=== PATIENT | female | born 1985 | race African-American/Black ===

== ENCOUNTER 2017-03-30 18:33 | Emergency (ER) | payer MEDICAID, OTHER ==
[~2017-03-30] VITALS: Ht 157.5 cm; Wt 70.0 kg
[2017-03-30] MEDS ORDERED: KETOROLAC 60MG/2ML VIAL IM STA (22:43)
[2017-03-30 22:44] LABS: CLARITY URINE CLEAR (CLEAR); COLOR URINE YELLOW (YELLOW); KETONES URINE NEGATIVE (NEGATIVE); LEUKOCYTE ESTERASE URINE NEGATIVE (NEGATIVE); NITRITE URINE NEGATIVE (NEGATIVE); OCCULT BLOOD URINE NEGATIVE (NEGATIVE); PROTEIN URINE NEGATIVE (NEGATIVE); SPECIFIC GRAVITY URINE 1.023 (1.005-1.030); UROBILINOGEN URINE 0.2 E.U./dL (0.2-1.0)
[2017-03-30] MEDS ORDERED: CYCLOBENZAPRINE 10MG TABLET PO ONE (22:45)
[2017-03-30 22:59] VITALS: BP 125/98
[2017-03-31 00:35] LABS: BASOPHILS % 0.9 % (0.0-2.0); EOSINOPHILS % 2.7 % (0.0-5.0); HEMATOCRIT. 37.4 % (36.0-48.0); HEMOGLOBIN. 12.5 g/dL (12.0-16.0); LYMPHOCYTES % 44.7 % (20.0-50.0); MEAN CORPUSCULAR HEMOGLOBIN 30.2 pg (28.0-32.0); MEAN CORPUSCULAR VOLUME 90.1 fL (81.0-99.0); MEAN PLATELET VOLUME 9.7 fl (7.4-10.4); MONOCYTES % 7.9 % (2.0-8.0); NEUTROPHILS % 43.8 % (40.0-76.0); PLATELET 280 x1000/uL (130-400); RED BLOOD CELL COUNT 4.15 mill/uL (4.2-5.4); RED CELL DISTRIBUTION WIDTH 13.4 % (11.6-14.6)
[2017-03-31 00:39] LABS: CHLORIDE 104 mEq/L (98-107)
== END 2017-03-31 01:21 | disposition home or self-care (01) ==
LOC: ER 18:58
DX: S39.012A Strain of muscle, fascia and tendon of lower back, initial encounter (principal); F12.10 Cannabis abuse, uncomplicated; R35.0 Frequency of micturition; X58.XXXA Exposure to other specified factors, initial encounter; Y93.89 Activity, other specified; Y92.89 Other specified places as the place of occurrence of the external cause; Y99.8 Other external cause status
CPT/HCPCS: 36415; 80053; 81003; 83690; 85025; 96372; 99284; J1885

== ENCOUNTER 2023-10-23 23:50 | Emergency (ER) | payer MEDICAID, OTHER ==
[~2023-10-23] VITALS: Ht 157.5 cm; Wt 77.0 kg
[2023-10-24 00:28] VITALS: O2SAT 100
[2023-10-24] MEDS ORDERED: KETOROLAC 30MG/ML VIAL IM ONE (01:30)
[2023-10-24 01:42] LABS: CLARITY URINE CLEAR (CLEAR); COLOR URINE YELLOW (YELLOW); GLUCOSE URINE NEGATIVE (NEGATIVE); KETONES URINE NEGATIVE (NEGATIVE); LEUKOCYTE ESTERASE URINE NEGATIVE (NEGATIVE); NITRITE URINE NEGATIVE (NEGATIVE); OCCULT BLOOD URINE NEGATIVE (NEGATIVE); PH URINE 5.5 (4.5-8.0); PROTEIN URINE NEGATIVE (NEGATIVE); SPECIFIC GRAVITY URINE 1.032 (1.005-1.030); UROBILINOGEN URINE 0.2 E.U./dL (0.2-1.0)
[2023-10-24 01:45] LABS: EOSINOPHILS % 2.5 % (0.0-5.0); LYMPHOCYTES % 41.2 % (20.0-50.0); MEAN CORPUSCULAR HEMOGLOBIN 30.4 pg (28.0-32.0); MEAN CORPUSCULAR HGB CONC 34.2 g/dL (31.0-37.0); MEAN CORPUSCULAR VOLUME 88.6 fL (81.0-99.0); MEAN PLATELET VOLUME 8.9 fl (7.4-10.4); MONOCYTES % 8.9 % (2.0-8.0); NEUTROPHILS % 46.4 % (40.0-76.0); PLATELET 343 x1000/uL (130-400); RED BLOOD CELL COUNT 3.95 mill/uL (4.2-5.4); RED CELL DISTRIBUTION WIDTH 13.8 % (11.6-14.6)
[2023-10-24] MEDS: KETOROLAC 30MG/ML VIAL IM NR (01:45)
[2023-10-24 01:49] LABS: CHLORIDE 105 mEq/L (98-107); POTASSIUM 3.6 mEq/L (3.5-5.1); SODIUM 140 mEq/L (136-145)
[2023-10-24 01:50] LABS: CALCIUM 9.6 mg/dL (8.7-10.4); CARBON DIOXIDE 27 mEq/L (21-32)
[2023-10-24 01:54] LABS: HCG SCREEN NEGATIVE
[2023-10-24 01:55] LABS: CREATININE 0.8 mg/dL (0.6-1.0); GLUCOSE 118 mg/dL (70-105)
[2023-10-24 01:56] LABS: UREA NITROGEN BLOOD 13 mg/dL (9-23)
[2023-10-24 01:57] LABS: ALANINE AMINOTRANSFERASE 36 IU/L (10-49); ALBUMIN 4.6 g/dL (3.2-4.8); ASPARTATE AMINOTRANSFERASE 21 IU/L (<34)
[2023-10-24 01:58] LABS: BILIRUBIN TOTAL 0.2 mg/dL (0.1-1.0); PROTEIN TOTAL 7.3 g/dL (6.0-8.3)
[2023-10-24 02:15] LABS: INR 0.9; PROTHROMBIN TIME 9.8 sec (9.6-11.0)
[2023-10-24 02:16] LABS: BILIRUBIN DIRECT < 0.1 mg/dL (<=3.0)
[2023-10-24] MEDS ORDERED: IBUP-2029 MT (03:00)
[2023-10-24 03:09] VITALS: BP 97/62; PULSE 64; RESP 18; TEMP 36.83628; O2SAT 100
== END 2023-10-24 03:11 | disposition home or self-care (01) ==
LOC: ER 23:50
DX: R10.84 Generalized abdominal pain (principal)
CPT/HCPCS: 99285; 74176; 76700; 80076; 80048; 81003; 81025; 84703; 83690; 85025; 85610; 36415; 96372; J1885